=== PATIENT | male | born 1975 | race Caucasian/White ===

== ENCOUNTER 2017-09-21 17:21 | Emergency (ER) | payer OTHER ==
[2017-09-21 17:39] VITALS: BP 159/89
[2017-09-21] MEDS ORDERED: Tetracaine 0.5% OPTH.SOL 15ML* BTL BOTH EYES ONE (17:42)
[2017-09-21] MEDS ORDERED: Fluorescein Sod TOPICAL 0.6* 0.6 MG TEST OPHTHALMIC ONE ×2 (17:43→17:45)
[2017-09-21] MEDS ORDERED: Tetracaine 0.5% OPTH.SOL 4 ML* 1 DROP BTL ONE (17:45)
--- NOTE | 2017-09-21 18:01 | UC ---
Eye Complaint HPI - HPI Summary HPI Summary: WORKING ON A PIECE OF EQUIPMENT WHILE AT WORK TODAY WHEN SOMETHING FELL IN HIS L EYE. HE WAS WEARING SAFETY GLASSES AT THE TIME. HE RINSED THE EYE AND DID GET A "GLOB" OR SOMETHING OUT. HE HAS AN ONGOING FB SENSATION UNDER THE LIDS OF L EYE. NO CONTACT USE. - History of Current Complaint Chief Complaint: UCEye Stated Complaint: LEFT EYE WC Time Seen by Provider: 09/21/17 17:41 Hx Obtained From: Patient Onset/Duration: Sudden Onset Timing: Constant Pain Intensity: 3 Aggravating Factor(s): Blinking Alleviating Factor(s): Nothing Associated Signs And Symptoms: Negative: Photophobia, Drainage (Purulent), Vision Impairment Left, Swelling - Allergies/Home Medications Allergies/Adverse Reactions: Allergies Allergy/AdvReac Type Severity Reaction Status Date / Time azithromycin [From Zithromax] Allergy Vomiting Verified 09/21/17 17:36 Home Medications: Home Medications Escitalopram Oxalate [Lexapro 10 mg] 10 mg PO DAILY 09/21/17 [History Confirmed 09/21/17] Fexofenadine (NF) [Marilu (NF)] 60 mg PO DAILY 09/21/17 [History Confirmed ] PMH/Surg Hx/FS Hx/Imm Hx - Additional Past Medical History Additional PMH: ALLERGIES Psychological History: Anxiety Other History Of: Negative For: HIV, Hepatitis B, Hepatitis C - Surgical History Surgical History: Yes Surgery Procedure, Year, and Place: appy 1978, right inguinal hernia 1995, LLE fx, t/a 1987 - Family History Known Family History: Positive: None - Social History Occupation: Employed Full-time Alcohol Use: Rare Substance Use Type: None Smoking Status (MU): Former Smoker Type: Smokeless Tobacco Amount Used/How Often: 0.75 can a day Length of Time of Smoking/Using Tobacco: 27 Years Have You Smoked in the Last Year: Yes When Did the Patient Quit Smoking/Using Tobacco: 17 YRS AGO - Immunization History Most Recent Influenza Vaccination: Not the 2015/2015 Season Hx Tetanus, Diphtheria Vaccination: Yes Vaccination Up to Date: Yes Review of Systems Constitutional: Negative Skin: Negative Eyes: Eye Redness - L ENT: Negative Respiratory: Negative Cardiovascular: Negative Gastrointestinal: Negative Genitourinary: Negative Motor: Negative Neurovascular: Negative Musculoskeletal: Negative Neurological: Negative Psychological: Negative Is Patient Immunocompromised?: No All Other Systems Reviewed And Are Negative: Yes Physical Exam Triage Information Reviewed: Yes Appearance: Well-Appearing Vital Signs: Initial Vital Signs Temp 98.3 F 09/21/17 17:32 Pulse 95 09/21/17 17:32 Resp 18 09/21/17 17:32 BP 159/89 09/21/17 17:32 Pulse Ox 99 09/21/17 17:32 Vital Signs Reviewed: Yes Eyes: Positive: Other: - NO periorbital edema or erythema. No auricular adenopathy. Conjunctiva on the left is injected. Pupils are equal round react to light extraocular movements are intact. There are no exudates. Anterior chambers are clear. Upper and lower lids on the left everted and no foreign bodies appreciated. Tetracaine placed in the L eye then stained, no foreign bodies appreciated and no abrasions. Also no dendrites or ulcers. Eye flushed with sterile NaCl. ENT: Positive: Pharynx normal. Negative: Nasal congestion, Nasal drainage Neck: Positive: Supple Respiratory: Positive: Lungs clear, No respiratory distress Cardiovascular: Positive: RRR Abdomen Description: Positive: Nontender, No Organomegaly, Soft Bowel Sounds: Positive: Present Musculoskeletal: Positive: ROM Intact Neurological: Positive: Alert Psychological: Positive: Age Appropriate Behavior Skin Exam: Normal Eye Complaint Course/Dx - Course Course Of Treatment: BP may be related to eye discomfort. no hx htn. pt advised to f/u pcp to have bp rechecked. it did improved a little during his stay. - Differential Dx/Diagnosis Provider Diagnoses: FB sensation L eye Discharge - Sign-Out/Discharge Documenting (check all that apply): Patient Departure - Discharge Plan Condition: Stable Disposition: HOME Prescriptions: Erythromycin OPTH OINT* [Erythromycin 0.5% OPTH OINT*] 1 applic LEFT EYE TID 5 Days #1 ophth.oint Patient Education Materials: Eye Foreign Body (ED) Referrals: Josemanuel Fontana MD [Primary Care Provider] - If Needed Additional Instructions: FOLLOW UP DR [facility] [address] [place] [phone] CALL IN AM TO BE SEEN WITHIN 3 DAYS. - Billing Disposition and Condition Condition: STABLE Disposition: Home
== END 2017-09-21 18:16 | disposition home or self-care (01) ==
LOC: UCCORT 17:21
DX: H57.8 Other specified disorders of eye and adnexa (principal); F41.9 Anxiety disorder, unspecified; Z88.1 Allergy status to other antibiotic agents; Z79.899 Other long term (current) drug therapy; Z87.891 Personal history of nicotine dependence
CPT/HCPCS: 99212; A9270-GY; G0463